=== PATIENT | female | born 1975 ===

== ENCOUNTER 2018-12-15 14:06 | Emergency (ER) | payer OTHER ==
[2018-12-15] MEDS ORDERED: Diph,Pert(Acell),Tet Vac 0.5 ML SYR IM ONE (14:15)
--- NOTE | 2018-12-15 14:24 | Emergency Department Record ---
History of Present Illness - General Chief complaint: Extremity Problem Stated complaint: INJURY TO RT HAND Time Seen by Provider: 12/15/18 14:14 Source: Patient - History of Present Illness Initial comments: The patient was outside walking her dog when the dog pulled her forward, jerking her right arm that held the leash and throwing her onto the ground. She landed on outstretched hands. She has abrasions to her palms, right shoulder and her knees. She states the arm that was pulled is sore and feels slightly numb up to her shoulder which she landed on. Her knees also are sore, but she states it d idn't hurt the bones. She wonders if the right hand is broken. She is NOT UTD on her tetanus. - Related Data Allergies Allergy/AdvReac Type Severity Reaction Status Date / Time No Known Allergies Allergy Unverified 09/06/18 07:50 Review of Systems Reviewed: No additional complaints except as noted below Constitutional: Reports: As per HPI. Denies: Chills, Fever, Malaise, Night sweats, Weakness, Weight change Eyes: Reports: As per HPI. Denies: Eye discharge, Eye pain, Photophobia, Vision change ENT: Reports: As per HPI. Denies: Congestion, Dental pain, Ear pain, Epistaxis, Hearing loss, Throat pain Respiratory: Reports: As per HPI. Denies: Cough, Dyspnea, Hemoptysis, Stridor, Wheezes Cardiovascular: Reports: As per HPI. Denies: Arrhythmia, Chest pain, Dyspnea on exertion, Edema, Murmurs, Orthopnea, Palpitations, Paroxysmal nocturnal dyspnea, Rheumatic Fever, Syncope Endocrine: Reports: As per HPI. Denies: Fatigue, Heat or cold intolerance, Polydipsia, Polyuria Gastrointestinal: Reports: As per HPI. Denies: Abdominal pain, Constipation, Diarrhea, Hematemesis, Hematochezia, Melena, Nausea, Vomiting Genitourinary: Reports: As per HPI. Denies: Abnormal menses, Discharge, Dyspareunia, Dysuria, Frequency, Hematuria, Incontinence, Retention, Urgency Musculoskeletal: Reports: As per HPI. Denies: Arthralgia, Back pain, Gout, Joint swelling, Myalgia, Neck pain Skin: Reports: As per HPI. Denies: Bruising, Change in color, Change in hair/ nails, Lesions, Pruritus, Rash Neurological: Reports: As per HPI. Denies: Abnormal gait, Confusion, Headache, Numbness, Paresthesias, Seizure, Tingling, Tremors, Vertigo, Weakness Psychiatric: Reports: As per HPI. Denies: Anxiety, Auditory hallucinations, Depression, Homicidal thoughts, Suicidal thoughts, Visual hallucinations Hematological/Lymphatic: Reports: As per HPI. Denies: Anemia, Blood Clots, Easy bleeding, Easy bruising, Swollen glands Physical Exam - General General Appearance: Alert, Oriented x3, Cooperative, No acute distress (holding ice bag to her hand) - Head Head exam: Atraumatic, Normal inspection - Eye Eye exam: Normal appearance, PERRL, EOMI. negative: Conjunctival injection, Nystagmus Pupils: Normal accommodation - ENT ENT exam: Normal exam, Mucous membranes moist, Normal external ear exam, Normal orophraynx Ear exam: Normal external inspection. negative: External canal tenderness Nasal Exam: Normal inspection. negative: Discharge, Sinus tenderness Mouth exam: Normal external inspection Teeth exam: Normal inspection. negative: Dental caries Throat exam: Normal inspection. negative: Tonsillar erythema, Tonsillar exudate - Neck Neck exam: Normal inspection, Full ROM, Other (nontender to palpation of cervical spine). negative: Lymphadenopathy, Meningismus, Tenderness - Respiratory Respiratory exam: negative: Respiratory distress - Cardiovascular Cardiovascular Exam: Regular rate, Normal rhythm - GI/Abdominal GI/Abdominal exam: Soft. negative: Tenderness - Rectal Rectal exam: Deferred - exam: Deferred - Extremities Extremities exam: Normal inspection, Full ROM, Normal capillary refill, Tenderness (Right hand tender over index and middle metacarpals with mild to moderate swelling.Two involved fingers feel slightly numb.No malrotation of fingers. There are abrasions to her right shoulder, right knee, and bilateral palms with no bony tenderness and no loss of ROM on any joint. CMS intact distally all injured areas. ) - Back Back exam: Reports: Normal inspection, Full ROM. Denies: Muscle spasm, Rash noted, Tenderness - Neurological Neurological exam: Alert, Normal gait, Oriented X3, Reflexes normal - Psychiatric Psychiatric exam: Normal affect, Normal mood - Skin Skin exam: Dry, Intact, Normal color, Warm Medical Decision Making - Management Options MDM Management: No Additional Work-up Planned - Data Complexity MDM Data: X-Ray Ordered and/or Reviewed (Right hand Xray: Negative per ED physician and radiologist.) Disposition Disposition: Discharge Clinical Impression: Abrasions of multiple sites Contusion of hand, right Qualifiers: Encounter type: initial encounter Qualified Code(s): S60.221A - Contusion of right hand, initial encounter Disposition: Home, Self-Care Condition: (1) Good Instructions: Contusion in Adults (ED), Abrasion (ED) Additional Instructions: Ice to contusions on and off the first 48 hours. Keep wounds covered for protection. Splint right hand 3-5 days for comfort. Recheck hand and wounds with PCP 3-5 days. Decreased use and splint to right hand until rechecked. Tylenol alternated with ibuprofen as directed as needed for pain. Expect to have more aches and pains in more areas tomorrow. Forms: Patient Portal Access Quality - Quality Measures Quality Measures: N/A - Blood Pressure Screening Does Patient Have Any of the Following: No Blood Pressure Classification: Hypertensive Reading Systolic Measurement: 136 Diastolic Measurement: 90 Screening for High Blood Pressure: < Pre-Hypertensive BP, F/U Documented > [[id number]] Pre-Hypertensive Follow-up Interventions: Follow-up with rescreen every year.
[2018-12-15] MEDS ORDERED: ACETAMINOPHEN 500 MG TABLET PO ONE (14:33)
--- NOTE | 2018-12-16 21:31 | RADIOLOGY REPORT ---
EXAM: HAND, RIGHT 3 VIEWS HISTORY: FALL ON OUTSTRETCHED HAND WHILE WALKING HER DOG. PAIN NEAR SECOND AND THIRD FINGERS AND METACARPALS. TECHNIQUE: Three views of the right hand. COMPARISON: None FINDINGS: No definite fracture is appreciated. No dislocation. No significant degenerative findings. No radiopaque foreign bodies. Index and long finger soft tissue swelling. IMPRESSION: 1. NO DEFINITE ACUTE OSSEOUS FINDINGS. 2. INDEX AND LONG FINGER SOFT TISSUE SWELLING. JOB NUMBER: [id number] MTDD
== END 2018-12-15 15:05 | disposition home or self-care (01) ==
LOC: ER 14:06
DX: S60.221A Contusion of right hand, initial encounter (principal); S40.211A Abrasion of right shoulder, initial encounter; S80.211A Abrasion, right knee, initial encounter; S60.512A Abrasion of left hand, initial encounter; S60.511A Abrasion of right hand, initial encounter; W01.10XA Fall on same level from slipping, tripping and stumbling with subsequent striking against unspecified object, initial encounter; Y93.K1 Activity, walking an animal
CPT/HCPCS: 90715; 96372; 99283; 99284